=== PATIENT | male | born 1945 | race Caucasian/White ===

== ENCOUNTER 2018-12-02 15:05 | Inpatient (IN) | payer MEDICARE ==
[~2018-12-02] VITALS: Ht 182.9 cm; Wt 83.6 kg
--- NOTE | 2018-12-02 15:20 | NUR ---
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 report taken from EMS. pt reports rt hip pain, rt leg is externally rotated and shortened. pt denies syncope/head injury/neck pain/tenderness. pt a&o, resps even and unlabored. 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 pain level 4/10 at this time. bp and spo2 monitors in place. call light in reach.
--- NOTE | 2018-12-02 15:28 | NUR ---
pt to xray at this time.
[2018-12-02] MEDS ORDERED: ONDANSETRON 2MG/ML, 2ML IVPush ONE (15:30)
[2018-12-02 15:36] LABS: BASOPHILS # (AUTO) 0.03 x10^3/uL (0-0.1); BASOPHILS % (AUTO) 0 % (0-1); EOSINOPHILS # (AUTO) 0.08 x10^3/uL (0-0.4); EOSINOPHILS % (AUTO) 1 % (1-7); LYMPHOCYTES # (AUTO) 0.83 x10^3/uL (1-3.4); LYMPHOCYTES % (AUTO) 8 % (22-44); MD NO; MEAN CORPUSCULAR HEMOGLOBIN 32.1 pg (27.5-34.5); MEAN CORPUSCULAR HGB CONC 33.5 g/dL (33.2-36.2); MEAN CORPUSCULAR VOLUME 95.9 fL (81-97); MEAN PLATELET VOLUME 9.5 fL (7.4-10.4); MONOCYTES # (AUTO) 0.24 x10^3/uL (0.2-0.8); MONOCYTES % (AUTO) 2 % (2-9); NEUTROPHILS # (AUTO) 9.17 x10^3/uL (1.8-6.8); NEUTROPHILS % (AUTO) 89 % (42-75); PLATELET COUNT 167 x10^3/uL (130-400); RED BLOOD COUNT 4.23 x10^6/uL (4.38-5.82); RED CELL DISTRIBUTION WIDTH 15.7 % (9.4-14.8)
[2018-12-02 15:44] LABS: ALBUMIN 3.6 g/dL (3.4-5.0); ANION GAP 4 mmol/L (5-15); CALCIUM 8.2 mg/dL (8.5-10.1); CHLORIDE 110 mmol/L (98-107); CREATININE 1.02 mg/dL (0.7-1.3)
[2018-12-02 15:53] LABS: INTERNATIONAL NORMALIZED RATIO 1.06 (0.93-1.1); PROTHROMBIN TIME 11.1 Seconds (9.6-11.5)
--- NOTE | 2018-12-02 15:54 | NUR ---
paged dr cunningham for dr kenney
--- NOTE | 2018-12-02 15:56 | NUR ---
dr cunningham returned call to dr kenney
[2018-12-02] MEDS ORDERED: ONDANSETRON 2MG/ML, 2ML ONE ×2 (16:00→20:35)
[2018-12-02] MEDS ORDERED: MORPHINE SULFATE 4 MG/ML, 1ML ONE ×2 (16:00→16:26)
[2018-12-02] MEDS: MORPHINE SULFATE 4 MG/ML, 1ML IVPush PRN ×2 (16:02→16:34)
--- NOTE | 2018-12-02 16:07 | NUR ---
pt back from xray, placed in gown. pt medicated per emar for pain level 5/10. RN unable to palpate rt dorsalis pulse, but this RN is able to auscultate pulse with doppler, monophasic. pulse location marked. cms remains intact, foot pink, cap refill <3 sec. JOSE A Medrano notified. bp and spo2 monitors in place. call light in reach. son at bedside. pt and son updated with POC and results so far by JOSE A Medrano, plan to go to surgery at 1730, son and pt informed. pt instructed to remain NPO.
--- NOTE | 2018-12-02 16:10 | NUR ---
PAIGE Davila at bedside to admit pt.
[2018-12-02] MEDS ORDERED: ONDANSETRON 2MG/ML, 2ML IVPush PRN (16:30)
[2018-12-02] MEDS ORDERED: BISACODYL 10 MG SUPP PR PRN (16:30)
[2018-12-02] MEDS ORDERED: ENALAPRILAT 1.25 MG/ML, 2ML IVPush PRN (16:30)
[2018-12-02] MEDS ORDERED: morphine SULFATE 10 MG/ML, 1ML IVPush PRN (16:30)
[2018-12-02] MEDS ORDERED: POLYETHYLENE GLYCOL 17 GM PACKET PO PRN (16:30)
[2018-12-02] MEDS ORDERED: ACETAMINOPHEN 325 MG TABLET PO PRN ×2 (16:30→18:00)
[2018-12-02] MEDS ORDERED: GABAPENTIN 300 MG CAPSULE PO PRN (16:30)
[2018-12-02] MEDS ORDERED: DOCUSATE 100 MG CAPSULE PO PRN (16:30)
--- NOTE | 2018-12-02 16:34 | NUR ---
pt reports pain level unchanged after first dose morphine, requests second dose. pt medicated per emar, tolerated well. pt a&o, resps even and unlabored. bp and spo2 monitors in place. son at bedside.
--- NOTE | 2018-12-02 16:44 | NUR ---
report given to KARINE Duarte pt awaiting transport to room 432.
--- NOTE | 2018-12-02 16:50 | NUR ---
pt transported to 4N, nadn at transport.
[2018-12-02 17:15] VITALS: BP 119/77
[2018-12-02] MEDS: SODIUM CHLORIDE 0.9% 1,000 ML IV SCH (17:45)
[2018-12-02] MEDS ORDERED: ONDANSETRON 2MG/ML, 2ML IV PRN (18:00)
[2018-12-02] MEDS ORDERED: LABETALOL 5 MG/ML SYRINGE IV PRN (18:00)
[2018-12-02] MEDS ORDERED: MORPHINE SULFATE 4 MG/ML, 1ML IVPush PRN (18:00)
[2018-12-02] MEDS ORDERED: OXYcodone 5 MG/5 ML ORAL.SOL UDC PO PRN (18:00)
[2018-12-02] MEDS ORDERED: PROMETHAZINE 25 MG/ML, 1ML IV PRN (18:00)
[2018-12-02] MEDS ORDERED: HYDROmorphone 2 MG/ML, 1ML IVPush PRN (18:00)
[2018-12-02] MEDS ORDERED: MEPERIDINE/PF 25MG/0.5ML IVPush PRN (18:00)
[2018-12-02] MEDS ORDERED: hydrALAzine 20 MG/ML, 1ML IV PRN (18:00)
[2018-12-02] MEDS ORDERED: FENTANYL PF 100 MCG/2ML IV PRN (18:00)
[2018-12-02 18:31] VITALS: BP 112/68
[2018-12-02] MEDS ORDERED: FENTANYL PF 250 MCG/5ML ONE (19:06)
[2018-12-02] MEDS ORDERED: DEXAMETHASONE 4 MG/ML, 1ML ONE ×2 (19:52→20:35)
[2018-12-02] MEDS ORDERED: CEFAZOLIN 1,000 MG ONE ×2 (19:55)
[2018-12-02] MEDS ORDERED: PROPOFOL 10 MG/ML, 20ML ONE (20:35)
[2018-12-02] MEDS ORDERED: KETOROLAC 30 MG/1 ML ONE (20:35)
[2018-12-02] MEDS ORDERED: HYDROmorphone 2 MG/ML, 1ML ONE (20:39)
[2018-12-02] MEDS ORDERED: OXYcodone 5 MG/5 ML ORAL.SOL UDC ONE (20:58)
[2018-12-02] MEDS ORDERED: ACETAMINOPHEN 650 MG/20.3 ML UDC ONE (20:58)
[2018-12-02 21:15] VITALS: BP 132/85
[2018-12-02] MEDS: CEFAZOLIN PMX 1GM/50ML 50 ML IVPB SCH (22:44)
[2018-12-03 00:06] VITALS: BP 104/69
[2018-12-03 03:34] VITALS: BP 102/64
[2018-12-03 05:14] LABS: BASOPHILS % (AUTO) 0 % (0-1); EOSINOPHILS # (AUTO) 0.27 x10^3/uL (0-0.4); EOSINOPHILS % (AUTO) 3 % (1-7); LYMPHOCYTES # (AUTO) 0.63 x10^3/uL (1-3.4); LYMPHOCYTES % (AUTO) 7 % (22-44); MD NO; MEAN CORPUSCULAR HEMOGLOBIN 33.2 pg (27.5-34.5); MEAN CORPUSCULAR VOLUME 94.7 fL (81-97); MEAN PLATELET VOLUME 9.5 fL (7.4-10.4); MONOCYTES # (AUTO) 0.46 x10^3/uL (0.2-0.8); MONOCYTES % (AUTO) 5 % (2-9); NEUTROPHILS # (AUTO) 7.76 x10^3/uL (1.8-6.8); NEUTROPHILS % (AUTO) 85 % (42-75); PLATELET COUNT 144 x10^3/uL (130-400); RED BLOOD COUNT 3.27 x10^6/uL (4.38-5.82); RED CELL DISTRIBUTION WIDTH 15.5 % (9.4-14.8)
[2018-12-03 05:17] LABS: ANION GAP 4 mmol/L (5-15); CALCIUM 7.7 mg/dL (8.5-10.1); CHLORIDE 110 mmol/L (98-107); CREATININE 1.06 mg/dL (0.7-1.3)
[2018-12-03] MEDS: CEFAZOLIN PMX 1GM/50ML 50 ML IVPB SCH (06:23)
[2018-12-03] MEDS: ENOXAPARIN 40 MG/0.4 ML SQ SCH (06:23)
[2018-12-03 06:51] VITALS: BP 97/54
[2018-12-03] MEDS: SODIUM CHLORIDE 0.9% 1,000 ML IV SCH (08:07)
[2018-12-03 13:12] VITALS: BP 95/59
[2018-12-03 19:37] VITALS: BP 104/62
[2018-12-04 02:52] VITALS: BP 111/72
[2018-12-04] MEDS: ENOXAPARIN 40 MG/0.4 ML SQ SCH (05:13)
[2018-12-04 06:53] VITALS: BP 107/67
[2018-12-04] MEDS ORDERED: KETOROLAC 30 MG/1 ML IVPush PRN (07:30)
[2018-12-04] MEDS ORDERED: KETOROLAC 30 MG/1 ML IVPush SCH (07:30)
[2018-12-04 13:33] VITALS: BP 100/65
[2018-12-04 19:34] VITALS: BP 121/68
[2018-12-05 02:11] VITALS: BP 129/71
[2018-12-05] MEDS: ENOXAPARIN 40 MG/0.4 ML SQ SCH (05:33)
[2018-12-05 07:16] VITALS: BP 117/73
[2018-12-05 07:41] VITALS: BP 112/74
[2018-12-05] MEDS ORDERED: MAGNESIUM CITRATE 300ML ORAL SOL PO PRN (09:00)
[2018-12-05 09:18] LABS: MEAN CORPUSCULAR HEMOGLOBIN 32.2 pg (27.5-34.5); MEAN CORPUSCULAR VOLUME 94.7 fL (81-97); MEAN PLATELET VOLUME 8.4 fL (7.4-10.4); PLATELET COUNT 144 x10^3/uL (130-400); RED BLOOD COUNT 2.77 x10^6/uL (4.38-5.82); RED CELL DISTRIBUTION WIDTH 15.9 % (9.4-14.8)
[2018-12-05] MEDS ORDERED: ENOX40SY4 SQ (12:13)
[2018-12-05 12:23] VITALS: BP 122/75
[2018-12-05] MEDS ORDERED: HYDR-3652 PO (19:13)
[2018-12-05] MEDS ORDERED: KETO10TA PO (19:13)
[2018-12-05 20:22] VITALS: BP 116/73
[2018-12-06 03:18] VITALS: BP 102/67
[2018-12-06] MEDS: ENOXAPARIN 40 MG/0.4 ML SQ SCH (05:01)
[2018-12-06 07:24] VITALS: BP 107/69
[2018-12-06] MEDS ORDERED: ASPI-650 PO (13:19)
== END 2018-12-06 13:05 | DRG 480 ==
LOC: ED 16:11 → EDIP 16:15 → 4NOR 17:04
PROVIDERS: ADMIT Hospitalist; ATTEND Hospitalist
PROC: 0QS636Z Reposition Right Upper Femur with Intramedullary Internal Fixation Device, Percutaneous Approach (ICD-10-PCS; principal; 2018-12-02 17:45)
DX: S72.141A Displaced intertrochanteric fracture of right femur, initial encounter for closed fracture (principal); R53.2 Functional quadriplegia; D62 Acute posthemorrhagic anemia; R73.9 Hyperglycemia, unspecified; D72.829 Elevated white blood cell count, unspecified; W01.0XXA Fall on same level from slipping, tripping and stumbling without subsequent striking against object, initial encounter; Y93.01 Activity, walking, marching and hiking; Y92.89 Other specified places as the place of occurrence of the external cause; Z82.3 Family history of stroke; Z82.49 Family history of ischemic heart disease and other diseases of the circulatory system; Y99.8 Other external cause status; R73.02 Impaired glucose tolerance (oral)
CPT/HCPCS: 36415; 71045; 76000; 80048; 80307; 82040; 85014; 85018; 85025; 85027; 85610; 85730; 93005; 96374; 96375; 96376; C1713; G0378; J0690; J1100; J1170; J1650; J1885; J2405; J2704; J3010; J7030